=== PATIENT | female | born 1970 | race Caucasian/White ===

== ENCOUNTER 2023-08-09 12:02 | Outpatient (OUT) | payer BC, SELFPAY ==
[2023-08-09 12:45] LABS: Creatinine Urine Random 90.34 mg/dL (20.00-300.00); Total Protein Urine Random 72.5 mg/dL (<=11.9)
[2023-08-09 13:15] LABS: Bilirubin Urine NEGATIVE (NEGATIVE); Blood Urine TRACE-I (NEGATIVE); Clarity Urine CLEAR (CLEAR); Color Urine LT. YELLOW (YELLOW); Glucose Urine UA NEGATIVE (NEGATIVE); Ketones Urine NEGATIVE (NEGATIVE); Leukocyte Esterase Urine NEGATIVE (NEGATIVE); Nitrite Urine NEGATIVE (NEGATIVE); Protein Urine 100 mg/dL (NEG/TRACE); Urobilinogen Urine 0.2 EU/dL (0.2-1.0)
[2023-08-09 13:40] LABS: Bacteria Urine TRACE #/HPF (NONE SEEN); Cast Seen? NONE SEEN #/LPF (NONE SEEN); Crystals Seen? None Seen #/HPF (None Seen); Mucus Urine TRACE (NONE SEEN); RBC Urine 0-2 #/HPF (0-2); Squamous Epithelial Cell Urine FEW #/LPF (NONE/RARE); WBC Urine NONE SEEN #/HPF (NONE SEEN)
== END 2023-08-09 12:03 | disposition home or self-care (01) ==
LOC: LAB 12:07
PROVIDERS: Visit Provider Internal Medicine
DX: R31.29 Other microscopic hematuria (principal); R80.9 Proteinuria, unspecified; I10 Essential (primary) hypertension; E78.5 Hyperlipidemia, unspecified; I48.19 Other persistent atrial fibrillation
CPT/HCPCS: 81001; 82570; 84156